=== PATIENT | male | born 1950 | race Caucasian/White ===

== ENCOUNTER 2016-09-22 20:08 | Emergency (ER) | payer OTHER ==
[2016-09-22 20:39] VITALS: BP 179/79; PULSE 76; RESP 18; TEMP 98.4; O2SAT 95
[2016-09-22] MEDS ORDERED: HYDROCOD/APAP 5/325 PREPACK#6 BTL TAKEHOME ONE (21:50)
--- NOTE | 2016-09-22 21:56 | UCPHY ---
H & P Time Seen by Provider: 09/22/16 21:06 Patient Type: Established HPI/ROS: This patient slipped on ice tonight falling on his left hip greater trochanter area with moderate pain to the area since that time but goes to 7/10 with walking. There is associated swelling. He denies any other injuries. He ambulated here with a cane. ROS: No head injury. No other HEENT complaints. Musculoskeletal: No neck back or other extremity injuries. Neuro: No numbness or tingling 5 point ROS is otherwise negative Past Medical/Surgical History: Diabetes. Smoking Status: Heavy smoker Physical Exam: Physical Exam Vital signs are normal. General: No acute distress HEENT: Atraumatic. Eyes: Pupils equal and react to light. Extraocular motions are intact. Neck and back are nontender Lungs: No respiratory distress. Cardiac: Brisk capillary refill is intact throughout. Pulses are 2+ and symmetric in the affected extremity. Skin: No rash or pallor. Extremities: Notable for swelling and tenderness to the left hip overlying the greater trochanter area. The swelling is an area approximately 4 x 4 cm. Despite this retains good range of motion of his hip without significant increase in pain. There is no foreshortening of the leg or malrotation. With pressure to the anterior superior iliac crest there is no pelvic pain. There is also no pain with compression to the pubic symphysis anteriorly while the patient is supine. Neuro: Alert and oriented x3 with no sensorimotor deficits. Initial differential diagnosis: Hip hematoma versus fracture Constitutional: Initial Vital Signs Temperature (C) 36.9 C 09/22/16 20:35 Heart Rate 76 09/22/16 20:35 Respiratory Rate 18 09/22/16 20:35 Blood Pressure 179/79 H 09/22/16 20:35 O2 Sat (%) 95 09/22/16 20:35 O2 Delivery Mode Room Air Allergies/Adverse Reactions: No Known Allergies Allergy (Verified 09/22/16 20:34) Home Medications: Medication Instructions Recorded Ascorbic Acid [Vitamin C] 10/01/12 Aspirin [Aspirin 325 mg (OTC)] 10/01/12 CHOLECALCIFEROL [VITAMIN D] 10/01/12 Clopidogrel Bisulfate [Plavix (RX)] 75 mg PO DAILY 10/01/12 Insulin Glargine,Hum.rec.anlog 10/01/12 [Lantus] Lisinopril [Zestril 5 mg (RX)] 5 mg PO DAILY 10/01/12 Metformin HCl [Glucophage 1000 mg] 1,000 mg PO BIDMEAL 10/01/12 Multivitamins [Multivitamin (OTC)] 10/01/12 [place]-3/Dha/Epa/Fish Oil [Fish Oil] 10/01/12 Omeprazole 20 mg PO 10/01/12 glipiZIDE [Glipizide 10 MG (RX)] 22.5 mg PO BID 10/01/12 Atorvastatin Calcium 12/31/14 Dulaglutide [Trulicity] 09/22/16 Hydrocodone/APAP 5/325 [[place] 1 - 2 tab PO Q4PRN PRN #14 tab 09/22/16 5/325 (*)] MDM/Departure - MDM Diagnostics: Hip x-ray: Negative for fracture or other abnormalities by my interpretation Medications Given: Discontinued Medications Acetaminophen/Hydrocodone Bitart ([place] 5/325mg Prepack#6) 1 btl TAKEHOME EDNOW ONE Stop: 09/22/16 21:51 Last Admin: 09/22/16 22:07 Dose: 1 btl ED Course/Re-evaluation: I counseled patient regarding hematoma. No evidence of pelvic fracture or other concerning findings - Depart Disposition: Home, Routine, Self-Care Clinical Impression: Traumatic hematoma of left hip Qualifiers: Encounter type: initial encounter Qualifier Code: (S70.02XA) Contusion of left hip, initial encounter Instructions: Hematoma (ED) Additional Instructions: Diagnosis: Traumatic hematoma of left hip Plan: Ice 20 minutes at a time 3 times a day until the swelling diminishes. Avoid prolonged heat to the area Tylenol or Vicodin as needed for pain control. No driving, alcohol or come Vicodin. Limit activity until symptoms improve. Follow up with primary care physician for any ongoing symptoms despite treatment plan. Prescriptions: Hydrocodone/APAP 5/325 [[place] 5/325 (*)] 1 - 2 tab PO Q4PRN PRN #14 tab PRN Reason: Pain Referrals: YESSICA GORMAN [Primary Care Provider] - As per Instructions - PQRS PQRS Measurement: 134: Depression screening and followup, PRIME MD-PHQ2 (12 years and older) Over the last 2 weeks, how often have you been bothered by any of the following problems? 1. Feeling down, depressed, or hopeless? 2. Little interest or pleasure in doing things? Patient answered no to both 1 and 2 130: Documentation of medications. Reviewed all patient medications, doses, route and frequency. 226: Do you smoke? Yes, counseled to stop 47: 65 and older: Advanced care planning. Patient designates surrogate decision maker as Alejandrina onofre 51: 18 years old and older with diagnosis of COPD, spirometry performance. MILAGROS 52: 18 years old and older with COPD and symptoms of COPD or FEV1<60% predicted prescribed a B Agonist. MILAGROS
--- NOTE | 2016-09-22 22:40 | DX ---
Left Hip, Two Views History: Pain post trauma. Findings: The femoral head is well rounded and normally located. No fracture or dislocation is identi fied. Multiple surgical clips are noted in the pelvis presumably associated with prostatic surgery. N o aggressive osseous lesions are identified. Impression: Negative for fracture.
== END 2016-09-22 22:08 | disposition home or self-care (01) ==
LOC: CED 20:08
DX: S70.02XA Contusion of left hip, initial encounter (principal); E11.9 Type 2 diabetes mellitus without complications; Z72.0 Tobacco use; W00.0XXA Fall on same level due to ice and snow, initial encounter
CPT/HCPCS: 73502; G0463; 99214-PO